=== PATIENT | male | born 2000 | race Caucasian/White ===

== ENCOUNTER 2022-10-11 23:04 | Emergency (ER) | payer MEDICAID ==
[~2022-10-11] VITALS: Ht 182.9 cm; Wt 63.1 kg
[2022-10-11 23:30] VITALS: BP 115/76
== END 2022-10-11 23:50 | disposition home or self-care (01) ==
LOC: ER 23:06
DX: V98.8XXA Other specified transport accidents, initial encounter; Y93.89 Activity, other specified; Y92.89 Other specified places as the place of occurrence of the external cause; Y99.8 Other external cause status
CPT/HCPCS: 99283